=== PATIENT | male | born 1985 | race Two or more races ===

== ENCOUNTER 2025-05-04 21:01 | Emergency (ER) | payer MEDICAID ==
[~2025-05-04] VITALS: Ht 177.8 cm; Wt 127.3 kg
--- NOTE | 2025-05-04 21:30 | RADIOLOGY REPORT ---
CLINICAL HISTORY: FEVER, COUGH TECHNIQUE: Chest 2 views of the chest were obtained. COMPARISON: None FINDINGS: The heart size and pulmonary vasculature are normal. The lungs are clear. No pleural effusion is pres ent. IMPRESSION: NO ACUTE CARDIOPULMONARY PROCESS.
[2025-05-04 22:01] LABS: MEAN PLATELET VOLUME 8.7 FL (7.4-10.4); RED CELL DISTRIBUTION WIDTH 13.2 % (11.5-14.5)
[2025-05-04 22:10] LABS: CREATININE 1.03 MG/DL (0.60-1.10); TOTAL CARBON DIOXIDE 30.3 MMOL/L (24-32); eCRCL 99 ML/MIN; eGFR 80 ML/MIN
--- NOTE | 2025-05-05 00:58 | Physician Documentation ---
History of Present Illness ~ Chief Complaint: Flu Symptoms Stated Complaint: SICK Time Seen by MD: 00:57 Primary Medical Doctor: n/a Mode of Arrival: POV HPI Patient presents to the emergency room for evaluation of generalized body aches congestion cough mild nausea without vomiting and some diarrhea. Onset of symptoms yesterday. He has taken some [id number]-ply-[id number] remedies with limited benefit. He is concerned he may have fluid in his lungs. No sick contacts. Medication Reconciliation Allergies: Coded Allergies: gabapentin (Verified Allergy, Unknown, 05/04/25) prednisone (Verified Allergy, Unknown, 05/04/25) Review of Systems ROS All review of systems negative except as per HPI Physical Exam Vital Signs: Temperature: 99.6, Source: Oral, Heart Rate: 90, Respiratory Rate: 17, BP: 155/101, Pulse Oximetry: 97, Weight: 127.270 Oxygen Flow Rate: 0 Physical Exam General: Patient is awake, alert, oriented x4 in no acute distress and well appearing.~ Head: Normocephalic and atraumatic. Eyes: Conjunctival normal. EOMI. PERRL. ENT: Mucous membranes moist. Neck: Supple, trachea is midline. Chest: Clear to auscultation bilaterally without rales, rhonchi, or wheezes. There is no accessory muscle use or retractions. Cardiac: RRR without murmurs, gallops, or rubs. Abd: Soft, nondistended, nontender, with normoactive bowel sounds. No guarding, rebound, or rigidity. Extremities: Normal strength. Normal range of motion. No deformities or edema. Progress Results/Orders Results/Orders Orders - SAMAN KIM MD Chest,Two Views (05/04/25 21:19) Saline Lock (05/04/25 21:09) Oxygen (05/04/25 21:09) Covid19 Binax Poc Result Entry (05/05/25 00:09) Completed Orders - SAMAN KIM MD Chest,Two Views (05/04/25 21:19) Cbc/Diff (05/04/25 21:09) BMP (05/04/25 21:09) Vital Signs 05/04/25 05/05/25 05/05/25 21:06 00:16 00:27 Temp 99.6 Pulse 89 90 Resp 16 17 B/P (MAP) 149/95 155/101 (119) Pulse Ox 98 97 O2 Flow Rate 0 Laboratory Tests Test 05/04/25 21:32 05/05/25 00:09 White Blood Count 8.5 Red Blood Count 5.52 Hemoglobin 16.4 Hematocrit 46.3 Mean Corpuscular Volume 84.0 Mean Corpuscular Hemoglobin 29.6 Mean Corpuscular Hemoglobin Concent 35.3 Red Cell Distribution Width 13.2 Platelet Count 186 Mean Platelet Volume 8.7 Neutrophils (%) (Auto) 66.0 Lymphocytes (%) (Auto) 19.5 L Monocytes (%) (Auto) 9.8 Eosinophils (%) (Auto) 4.1 Basophils (%) (Auto) 0.6 Neutrophils # (Auto) 5.6 Lymphocytes # (Auto) 1.6 Monocytes # (Auto) 0.8 Eosinophils # (Auto) 0.3 Basophils # (Auto) 0.1 CBC Comment Sodium Level 136 Potassium Level 3.7 Chloride Level 98 L Carbon Dioxide Level 30.3 Anion Gap 8 Blood Urea Nitrogen 11 Creatinine 1.03 Estimated GFR/1.73 m2 80 BUN/Creatinine Ratio 10.7 Glucose Level 92 Calcium Level 9.3 Albumin 3.9 Chemistry Comments SARS-CoV-2 Antigen (Rapid) Negative Medical Decision Making Findings Patient presented to the emergency room with generalized symptoms as per HPI. Differentials include but are not limited to viral syndrome, influenza, COVID, dehydration, pneumonia, heart failure therefore emergent labs and imaging indicated. Chest x-ray is clear and given patient's constellation of symptoms symptoms likely viral in nature. Symptomatic treatment only. Departure Disposition: HOME / SELF CARE / HOMELESS Impression: Primary Impression: Viral infection Condition: Stable Discharge Instructions: Viral Illness Additional Instructions: Ibuprofen and Tylenol may be taken together for your symptoms. Encourage hydration Referrals: NO PRIMARY CARE PROVIDER (PCP) Prescriptions Loperamide Hcl (Loperamide) 2 Mg Capsule 2 CAP PO Q6H for loose stool for 5 Days, #40 CAP 0 Refills Prov: SAMAN KIM MD 05/05/25 Ondansetron 8mg ODT (Ondansetron Odt) 8 Mg Tab.rapdis 1 TAB PO Q6H for nausea/vomiting for 3 Days, #12 TAB 0 Refills Prov: SAMAN KIM MD 05/05/25 Education Educated: Patient Educated regarding: diagnosis, treatment, need for follow up Signature Scribe Signature: No scribe Attestation: The note accurately reflects work and decisions made by me.Saman Kim MD 05/05/25 01:08 SAMAN KIM MD May 05, 2025 00:58
[2025-05-05] MEDS ORDERED: ONDA-245 PO (01:08)
[2025-05-05] MEDS ORDERED: LOPE2CAP PO (01:08)
[2025-05-05 01:27] VITALS: BP 120/86; PULSE 68; RESP 14; TEMP 99.6; O2SAT 96
== END 2025-05-05 01:29 | disposition home or self-care (01) ==
LOC: ER 21:02
DX: B34.9 Viral infection, unspecified (principal); Z88.8 Allergy status to other drugs, medicaments and biological substances; Z20.822 Contact with and (suspected) exposure to COVID-19
CPT/HCPCS: 36415; 71046; 80048; 85025; 87811; 99284